=== PATIENT | male | born 1945 | race Caucasian/White ===

== ENCOUNTER 2016-11-15 11:02 | Emergency (ER) | payer OTHER, BC ==
[2016-11-15 11:26] VITALS: BP 152/86
[2016-11-15] MEDS ORDERED: Lidocaine 1% 20 ML MDV INFILT ONE (11:26)
[2016-11-15] MEDS ORDERED: Diphtheria/Tetanus Toxoids,Adult (Td) 0.5 ML SDV IM ONE (11:27)
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
[2016-11-15] MEDS ORDERED: Bacitracin Oint 1 GM U/D Packet ONE (12:39)
[2016-11-16] MEDS ORDERED: Bacitracin Oint 1 GM U/D Packet TOP ONE (08:49)
== END 2016-11-15 13:06 | disposition home or self-care (01) ==
LOC: JP.ED 11:02
DX: S81.811A Laceration without foreign body, right lower leg, initial encounter (principal); Z79.82 Long term (current) use of aspirin; Z79.899 Other long term (current) drug therapy; Z88.0 Allergy status to penicillin; W22.8XXA Striking against or struck by other objects, initial encounter; Y99.0 Civilian activity done for income or pay
CPT/HCPCS: 12007; 90471; 90714; 99283-25

== ENCOUNTER 2021-07-16 10:58 | Inpatient (IN) | payer BC, MEDICARE, OTHER ==
[2021-07-16] MEDS ORDERED: Albuterol/Ipratropium 3.0-0.5 MG/3 ML Neb Soln NEB ONE (11:04)
[2021-07-16] MEDS ORDERED: Sodium Chloride 0.9% 1,000 ML IV SCH (11:45)
[2021-07-16] MEDS ORDERED: cefTRIAXone 1 GM in Sodium Chloride 0.9% 50 ML IV ONE ×2 (11:51→13:00)
[2021-07-16] MEDS ORDERED: Levofloxacin/Dextrose 5%-Water 750 MG in Premix Bag 1 BAG IV ONE (11:51)
[2021-07-16 11:57] LABS: CORONAVIRUS COVID-19 NAA NEGATIVE (NEGATIVE)
[2021-07-16] MEDS ORDERED: Albuterol 0.083% 2.5 MG/3 ML Neb Soln NEB ONE (13:04)
[2021-07-16] MEDS ORDERED: methylPREDNISolone Sodium Succinate 125 MG/2 ML SDV IVPUSH ONE (13:04)
[2021-07-16] MEDS ORDERED: LORazepam 2 MG/ML SDV IVPUSH PRN ×2 (13:42→14:46)
[2021-07-16] MEDS ORDERED: Magnesium Hydroxide 400 MG/5 ML Susp 30 ML Cup PO PRN (14:46)
[2021-07-16] MEDS ORDERED: Ondansetron 4 MG Tab.DIS PO PRN (14:46)
[2021-07-16] MEDS ORDERED: Acetaminophen 325 MG Tab PO PRN (14:46)
[2021-07-16] MEDS ORDERED: Ondansetron 4 MG/2 ML SDV IV PRN (14:46)
[2021-07-16] MEDS ORDERED: Ibuprofen 600 MG Tab PO PRN (14:46)
[2021-07-16] MEDS: Linezolid 600 MG in Premix Bag 1 BAG IV SCH (14:55)
[2021-07-16] MEDS: Albuterol/Ipratropium 3.0-0.5 MG/3 ML Neb Soln NEB SCH ×2 (15:45→20:49)
[2021-07-16] MEDS ORDERED: Codeine/guaiFENesin 10-100 MG/5 ML Syrup 5 ML Cup PO PRN (16:02)
[2021-07-16] MEDS ORDERED: Benzonatate 100 MG Cap PO PRN (16:02)
[2021-07-16] MEDS: Morphine 2 MG/ML SYRINGE IVPUSH PRN ×3 (16:17→22:55)
[2021-07-16] MEDS: Sodium Chloride 0.9% 1,000 ML IV SCH (18:48)
[2021-07-16] MEDS: Lactobacillus Rhamnosus GG (Probiotic) Cap PO SCH (20:49)
[2021-07-16] MEDS: methylPREDNISolone Sodium Succinate 125 MG/2 ML SDV IVPUSH SCH (20:49)
[2021-07-17] MEDS: Morphine 2 MG/ML SYRINGE IVPUSH PRN ×3 (02:13→07:30)
[2021-07-17] MEDS: Linezolid 600 MG in Premix Bag 1 BAG IV SCH ×2 (03:39→15:22)
[2021-07-17] MEDS: methylPREDNISolone Sodium Succinate 125 MG/2 ML SDV IVPUSH SCH ×3 (04:25→20:16)
[2021-07-17] MEDS: Sodium Chloride 0.9% 1,000 ML IV SCH (06:02)
[2021-07-17] MEDS: Albuterol/Ipratropium 3.0-0.5 MG/3 ML Neb Soln NEB SCH ×4 (07:00→20:15)
[2021-07-17] MEDS ORDERED: Bupivacaine 0.5%/EPINEPHrine 1:200,000 50 ML MDV ONE (10:04)
[2021-07-17] MEDS ORDERED: Midazolam 1 MG/ML 2 ML SDV ONE (10:11)
[2021-07-17] MEDS ORDERED: Propofol 200 MG/20 ML SDV ONE (10:11)
[2021-07-17] MEDS ORDERED: fentaNYL 100 MCG/2 ML SDV ONE (10:11)
[2021-07-17] MEDS: Morphine PF 30 MG/30 ML PCA Vial IV PRN (11:56)
[2021-07-17] MEDS: Pantoprazole 40 MG Tab.CR PO SCH (11:59)
[2021-07-17] MEDS ORDERED: Naloxone 0.4 MG/ML SDV IV PRN (12:00)
[2021-07-17] MEDS: Lactobacillus Rhamnosus GG (Probiotic) Cap PO SCH ×2 (12:00→20:15)
[2021-07-17] MEDS: Aspirin 81 MG Tab.Chew PO SCH (12:00)
[2021-07-17] MEDS: Levofloxacin/Dextrose 5%-Water 750 MG in Premix Bag 1 BAG IV SCH (12:06)
[2021-07-17] MEDS: Acetaminophen 325 MG Tab PO SCH ×2 (12:14→18:16)
[2021-07-18] MEDS: Sodium Chloride 0.9% 1,000 ML IV SCH ×2 (00:23→12:22)
[2021-07-18] MEDS: Acetaminophen 325 MG Tab PO SCH ×5 (00:25→23:57)
[2021-07-18] MEDS: Linezolid 600 MG in Premix Bag 1 BAG IV SCH ×2 (02:25→15:22)
[2021-07-18] MEDS: methylPREDNISolone Sodium Succinate 125 MG/2 ML SDV IVPUSH SCH ×3 (05:14→20:35)
[2021-07-18] MEDS: Albuterol/Ipratropium 3.0-0.5 MG/3 ML Neb Soln NEB SCH ×4 (07:06→20:35)
[2021-07-18] MEDS: Pantoprazole 40 MG Tab.CR PO SCH (07:25)
[2021-07-18] MEDS: Lactobacillus Rhamnosus GG (Probiotic) Cap PO SCH ×2 (08:41→20:35)
[2021-07-18] MEDS: Aspirin 81 MG Tab.Chew PO SCH (08:41)
[2021-07-18] MEDS: Levofloxacin/Dextrose 5%-Water 750 MG in Premix Bag 1 BAG IV SCH (12:35)
[2021-07-18] MEDS ORDERED: Calcium Carbonate 500 MG Tab.Chew PO PRN (16:59)
[2021-07-19] MEDS: Morphine PF 30 MG/30 ML PCA Vial IV PRN (02:03)
[2021-07-19] MEDS: Linezolid 600 MG in Premix Bag 1 BAG IV SCH ×2 (03:00→15:12)
[2021-07-19] MEDS: methylPREDNISolone Sodium Succinate 125 MG/2 ML SDV IVPUSH SCH (04:56)
[2021-07-19] MEDS: Acetaminophen 325 MG Tab PO SCH ×4 (06:05→17:00)
[2021-07-19] MEDS: Albuterol/Ipratropium 3.0-0.5 MG/3 ML Neb Soln NEB SCH ×4 (07:26→21:11)
[2021-07-19] MEDS: Lactobacillus Rhamnosus GG (Probiotic) Cap PO SCH ×2 (08:12→21:00)
[2021-07-19] MEDS: Pantoprazole 40 MG Tab.CR PO SCH ×2 (08:12→16:59)
[2021-07-19] MEDS: Aspirin 81 MG Tab.Chew PO SCH (08:12)
[2021-07-19] MEDS ORDERED: Tamsulosin 0.4 MG Cap.ER PO ONE (09:00)
[2021-07-19] MEDS: Levofloxacin/Dextrose 5%-Water 750 MG in Premix Bag 1 BAG IV SCH (12:32)
[2021-07-19] MEDS: Albuterol 0.083% 2.5 MG/3 ML Neb Soln NEB PRN (15:40)
[2021-07-19] MEDS: methylPREDNISolone Sodium Succinate 40 MG/1 ML SDV IVPUSH SCH (16:52)
[2021-07-19] MEDS: Tamsulosin 0.4 MG Cap.ER PO SCH (21:00)
[2021-07-20] MEDS: Acetaminophen 325 MG Tab PO SCH ×4 (00:18→17:21)
[2021-07-20] MEDS: Linezolid 600 MG in Premix Bag 1 BAG IV SCH (02:57)
[2021-07-20] MEDS: methylPREDNISolone Sodium Succinate 40 MG/1 ML SDV IVPUSH SCH (04:01)
[2021-07-20] MEDS: Albuterol 0.083% 2.5 MG/3 ML Neb Soln NEB PRN (05:10)
[2021-07-20] MEDS: Albuterol/Ipratropium 3.0-0.5 MG/3 ML Neb Soln NEB SCH ×4 (07:14→22:19)
[2021-07-20] MEDS: Pantoprazole 40 MG Tab.CR PO SCH ×2 (07:54→16:28)
[2021-07-20] MEDS: Aspirin 81 MG Tab.Chew PO SCH (08:02)
[2021-07-20] MEDS: Lactobacillus Rhamnosus GG (Probiotic) Cap PO SCH ×2 (08:02→22:18)
[2021-07-20] MEDS: LORazepam 0.5 MG Tab PO PRN (10:12)
[2021-07-20] MEDS: Levofloxacin/Dextrose 5%-Water 750 MG in Premix Bag 1 BAG IV SCH (12:03)
[2021-07-20] MEDS: Tamsulosin 0.4 MG Cap.ER PO SCH (22:18)
[2021-07-21] MEDS: Morphine PF 30 MG/30 ML PCA Vial IV PRN (06:31)
[2021-07-21] MEDS: Acetaminophen 325 MG Tab PO SCH ×4 (06:49→17:15)
[2021-07-21] MEDS: Albuterol/Ipratropium 3.0-0.5 MG/3 ML Neb Soln NEB SCH ×4 (07:47→21:13)
[2021-07-21] MEDS: Potassium Phos in 0.9 % NaCl 15 MMOL in Premix Bag 1 BAG IV SCH ×6 (08:26→15:14)
[2021-07-21] MEDS: Pantoprazole 40 MG Tab.CR PO SCH ×2 (08:26→17:15)
[2021-07-21] MEDS: Aspirin 81 MG Tab.Chew PO SCH (08:27)
[2021-07-21] MEDS: Lactobacillus Rhamnosus GG (Probiotic) Cap PO SCH ×2 (08:28→21:13)
[2021-07-21] MEDS: Levofloxacin/Dextrose 5%-Water 750 MG in Premix Bag 1 BAG IV SCH (14:05)
[2021-07-21] MEDS: Albuterol 0.083% 2.5 MG/3 ML Neb Soln NEB PRN (19:34)
[2021-07-21] MEDS: Tamsulosin 0.4 MG Cap.ER PO SCH (21:13)
[2021-07-22] MEDS: Acetaminophen 325 MG Tab PO SCH ×5 (00:07→23:22)
[2021-07-22] MEDS: Albuterol/Ipratropium 3.0-0.5 MG/3 ML Neb Soln NEB SCH ×4 (07:03→20:56)
[2021-07-22] MEDS: Pantoprazole 40 MG Tab.CR PO SCH ×2 (07:25→15:43)
[2021-07-22] MEDS: Aspirin 81 MG Tab.Chew PO SCH (08:23)
[2021-07-22] MEDS: Lactobacillus Rhamnosus GG (Probiotic) Cap PO SCH ×2 (08:23→20:56)
[2021-07-22] MEDS: Budesonide 0.5 MG/2 ML Neb Susp NEB SCH ×2 (10:55→20:56)
[2021-07-22] MEDS: Levofloxacin/Dextrose 5%-Water 750 MG in Premix Bag 1 BAG IV SCH (12:07)
[2021-07-22] MEDS: Morphine PF 30 MG/30 ML PCA Vial IV PRN (15:15)
[2021-07-22] MEDS: Tamsulosin 0.4 MG Cap.ER PO SCH (20:56)
[2021-07-23] MEDS: Acetaminophen 325 MG Tab PO SCH ×4 (06:01→23:25)
[2021-07-23] MEDS: Budesonide 0.5 MG/2 ML Neb Susp NEB SCH ×2 (07:17→20:22)
[2021-07-23] MEDS: Albuterol/Ipratropium 3.0-0.5 MG/3 ML Neb Soln NEB SCH ×4 (07:17→20:22)
[2021-07-23] MEDS: Pantoprazole 40 MG Tab.CR PO SCH ×2 (08:05→15:41)
[2021-07-23] MEDS: Lactobacillus Rhamnosus GG (Probiotic) Cap PO SCH ×2 (08:05→20:22)
[2021-07-23] MEDS: Aspirin 81 MG Tab.Chew PO SCH (08:05)
[2021-07-23] MEDS ORDERED: Iopamidol 612 MG/ML 100 ML Bottle IV ONE (10:54)
[2021-07-23] MEDS ORDERED: Sodium Chloride 0.9% 50 ML IV SCH (11:00)
[2021-07-23] MEDS ORDERED: Furosemide 40 MG/4 ML VIAL IVPUSH ONE (11:15)
[2021-07-23] MEDS: Levofloxacin/Dextrose 5%-Water 750 MG in Premix Bag 1 BAG IV SCH (12:44)
[2021-07-23] MEDS: methylPREDNISolone Sodium Succinate 40 MG/1 ML SDV IVPUSH SCH ×2 (15:15→22:02)
[2021-07-23] MEDS: Benzocaine/Cetylpyridinium/Menthol Lozenge MUCMEM PRN (15:41)
[2021-07-23] MEDS: Tamsulosin 0.4 MG Cap.ER PO SCH (20:22)
[2021-07-24] MEDS: methylPREDNISolone Sodium Succinate 40 MG/1 ML SDV IVPUSH SCH ×3 (05:49→22:33)
[2021-07-24] MEDS: Acetaminophen 325 MG Tab PO SCH ×3 (05:50→17:04)
[2021-07-24] MEDS: Morphine PF 30 MG/30 ML PCA Vial IV PRN (06:05)
[2021-07-24] MEDS: Pantoprazole 40 MG Tab.CR PO SCH ×2 (07:35→15:50)
[2021-07-24] MEDS: Budesonide 0.5 MG/2 ML Neb Susp NEB SCH ×2 (07:38→20:28)
[2021-07-24] MEDS: Albuterol/Ipratropium 3.0-0.5 MG/3 ML Neb Soln NEB SCH ×4 (07:38→20:25)
[2021-07-24] MEDS: Lactobacillus Rhamnosus GG (Probiotic) Cap PO SCH ×2 (10:44→20:20)
[2021-07-24] MEDS: Aspirin 81 MG Tab.Chew PO SCH (10:45)
[2021-07-24] MEDS ORDERED: Linezolid 600 MG in Premix Bag 1 BAG IV SCH (12:00)
[2021-07-24] MEDS: Levofloxacin/Dextrose 5%-Water 750 MG in Premix Bag 1 BAG IV SCH (13:17)
[2021-07-24] MEDS: Meropenem 1 GM in Sodium Chloride 0.9% 100 ML IV SCH ×2 (15:45→22:33)
[2021-07-24] MEDS ORDERED: Vancomycin 1 GM SDV IV SCH (17:00)
[2021-07-24] MEDS: Tamsulosin 0.4 MG Cap.ER PO SCH (20:20)
[2021-07-25] MEDS: Acetaminophen 325 MG Tab PO SCH ×4 (00:11→17:05)
[2021-07-25] MEDS: methylPREDNISolone Sodium Succinate 40 MG/1 ML SDV IVPUSH SCH ×3 (05:17→22:34)
[2021-07-25] MEDS: Meropenem 1 GM in Sodium Chloride 0.9% 100 ML IV SCH ×3 (05:17→22:37)
[2021-07-25] MEDS ORDERED: Bupivacaine 0.5%/EPINEPHrine 1:200,000 50 ML MDV ONE (06:37)
[2021-07-25] MEDS ORDERED: Midazolam 1 MG/ML 2 ML SDV ONE (07:08)
[2021-07-25] MEDS ORDERED: fentaNYL 100 MCG/2 ML SDV ONE (07:08)
[2021-07-25] MEDS ORDERED: Propofol 200 MG/20 ML SDV ONE (07:08)
[2021-07-25] MEDS: Albuterol/Ipratropium 3.0-0.5 MG/3 ML Neb Soln NEB SCH ×4 (07:16→20:38)
[2021-07-25] MEDS: Budesonide 0.5 MG/2 ML Neb Susp NEB SCH ×2 (07:16→20:38)
[2021-07-25] MEDS: Linezolid 600 MG in Premix Bag 1 BAG IV SCH ×2 (09:30→20:29)
[2021-07-25] MEDS: Pantoprazole 40 MG Tab.CR PO SCH ×2 (10:30→15:42)
[2021-07-25] MEDS: Lactobacillus Rhamnosus GG (Probiotic) Cap PO SCH ×2 (10:30→20:28)
[2021-07-25] MEDS: Aspirin 81 MG Tab.Chew PO SCH (10:31)
[2021-07-25] MEDS: Levofloxacin/Dextrose 5%-Water 750 MG in Premix Bag 1 BAG IV SCH (12:24)
[2021-07-25] MEDS: Morphine PF 30 MG/30 ML PCA Vial IV PRN (20:13)
[2021-07-25] MEDS: Tamsulosin 0.4 MG Cap.ER PO SCH (20:28)
[2021-07-26] MEDS: Acetaminophen 325 MG Tab PO SCH ×4 (00:56→17:46)
[2021-07-26] MEDS ORDERED: Sodium Chloride 0.9% 75 ML IV STA (04:17)
[2021-07-26] MEDS ORDERED: Iopamidol 612 MG/ML 100 ML Bottle IV STA (04:17)
[2021-07-26] MEDS: Meropenem 1 GM in Sodium Chloride 0.9% 100 ML IV SCH ×3 (06:23→23:06)
[2021-07-26] MEDS: methylPREDNISolone Sodium Succinate 40 MG/1 ML SDV IVPUSH SCH ×3 (06:27→23:06)
[2021-07-26] MEDS: Albuterol/Ipratropium 3.0-0.5 MG/3 ML Neb Soln NEB SCH ×4 (07:48→20:58)
[2021-07-26] MEDS: Budesonide 0.5 MG/2 ML Neb Susp NEB SCH ×2 (07:48→20:58)
[2021-07-26] MEDS: Linezolid 600 MG in Premix Bag 1 BAG IV SCH ×2 (08:35→20:58)
[2021-07-26] MEDS: Aspirin 81 MG Tab.Chew PO SCH (08:36)
[2021-07-26] MEDS: Pantoprazole 40 MG Tab.CR PO SCH ×2 (08:36→16:12)
[2021-07-26] MEDS: Lactobacillus Rhamnosus GG (Probiotic) Cap PO SCH ×2 (08:36→20:58)
[2021-07-26] MEDS: Levofloxacin/Dextrose 5%-Water 750 MG in Premix Bag 1 BAG IV SCH (12:54)
[2021-07-26] MEDS: Tamsulosin 0.4 MG Cap.ER PO SCH (20:58)
[2021-07-27] MEDS: Acetaminophen 325 MG Tab PO SCH ×5 (00:57→17:53)
[2021-07-27] MEDS: Morphine PF 30 MG/30 ML PCA Vial IV PRN (03:03)
[2021-07-27] MEDS ORDERED: Sodium Chloride 0.65% Nasal Spray 45 ML Bottle NAS PRN (03:40)
[2021-07-27] MEDS: methylPREDNISolone Sodium Succinate 40 MG/1 ML SDV IVPUSH SCH (05:32)
[2021-07-27] MEDS: Meropenem 1 GM in Sodium Chloride 0.9% 100 ML IV SCH (05:32)
[2021-07-27] MEDS: Albuterol/Ipratropium 3.0-0.5 MG/3 ML Neb Soln NEB SCH ×4 (07:29→20:18)
[2021-07-27] MEDS: Budesonide 0.5 MG/2 ML Neb Susp NEB SCH ×2 (07:29→20:19)
[2021-07-27] MEDS: Pantoprazole 40 MG Tab.CR PO SCH ×2 (07:58→16:39)
[2021-07-27] MEDS ORDERED: Furosemide 20 MG/2 ML VIAL IVPUSH ONE (09:00)
[2021-07-27] MEDS: Linezolid 600 MG in Premix Bag 1 BAG IV SCH (09:19)
[2021-07-27] MEDS: Aspirin 81 MG Tab.Chew PO SCH (09:24)
[2021-07-27] MEDS: Lactobacillus Rhamnosus GG (Probiotic) Cap PO SCH ×2 (09:25→20:36)
[2021-07-27] MEDS: oxyCODONE 5 MG Tab PO PRN ×3 (11:01→21:47)
[2021-07-27] MEDS ORDERED: predniSONE 10 MG Tab PO ONE (12:00)
[2021-07-27] MEDS: Levofloxacin/Dextrose 5%-Water 750 MG in Premix Bag 1 BAG IV SCH (14:03)
[2021-07-27] MEDS: cefTRIAXone 1 GM in Sodium Chloride 0.9% 50 ML IV SCH (15:39)
[2021-07-27] MEDS: Tamsulosin 0.4 MG Cap.ER PO SCH (20:36)
[2021-07-28] MEDS: Acetaminophen 325 MG Tab PO SCH ×5 (00:38→23:43)
[2021-07-28] MEDS: oxyCODONE 5 MG Tab PO PRN ×4 (03:32→22:10)
[2021-07-28] MEDS: Albuterol 0.083% 2.5 MG/3 ML Neb Soln NEB PRN (03:51)
[2021-07-28] MEDS: Budesonide 0.5 MG/2 ML Neb Susp NEB SCH ×2 (07:11→20:36)
[2021-07-28] MEDS: Albuterol/Ipratropium 3.0-0.5 MG/3 ML Neb Soln NEB SCH ×4 (07:11→20:36)
[2021-07-28] MEDS: Pantoprazole 40 MG Tab.CR PO SCH ×2 (08:05→17:38)
[2021-07-28] MEDS: predniSONE 10 MG Tab PO SCH (08:15)
[2021-07-28] MEDS: Aspirin 81 MG Tab.Chew PO SCH (09:17)
[2021-07-28] MEDS: Lactobacillus Rhamnosus GG (Probiotic) Cap PO SCH ×2 (09:17→20:36)
[2021-07-28] MEDS ORDERED: Ketorolac 30 MG/ML SDV IVPUSH PRN ×2 (10:48→11:32)
[2021-07-28] MEDS: Levofloxacin/Dextrose 5%-Water 750 MG in Premix Bag 1 BAG IV SCH (14:10)
[2021-07-28] MEDS: cefTRIAXone 1 GM in Sodium Chloride 0.9% 50 ML IV SCH (15:57)
[2021-07-28] MEDS: Tamsulosin 0.4 MG Cap.ER PO SCH (20:36)
[2021-07-29] MEDS: Acetaminophen 325 MG Tab PO SCH ×3 (05:23→17:01)
[2021-07-29] MEDS: oxyCODONE 5 MG Tab PO PRN ×4 (05:24→21:37)
[2021-07-29] MEDS: predniSONE 10 MG Tab PO SCH (07:26)
[2021-07-29] MEDS: Pantoprazole 40 MG Tab.CR PO SCH ×2 (07:26→17:00)
[2021-07-29] MEDS: Albuterol/Ipratropium 3.0-0.5 MG/3 ML Neb Soln NEB SCH ×4 (07:33→21:32)
[2021-07-29] MEDS: Budesonide 0.5 MG/2 ML Neb Susp NEB SCH ×2 (07:33→21:37)
[2021-07-29] MEDS: Aspirin 81 MG Tab.Chew PO SCH (09:23)
[2021-07-29] MEDS: Lactobacillus Rhamnosus GG (Probiotic) Cap PO SCH ×2 (09:24→21:32)
[2021-07-29] MEDS: Levofloxacin/Dextrose 5%-Water 750 MG in Premix Bag 1 BAG IV SCH (15:09)
[2021-07-29] MEDS: cefTRIAXone 1 GM in Sodium Chloride 0.9% 50 ML IV SCH (16:57)
[2021-07-29] MEDS: Tamsulosin 0.4 MG Cap.ER PO SCH (21:32)
[2021-07-30] MEDS: Acetaminophen 325 MG Tab PO SCH ×5 (00:11→23:22)
[2021-07-30] MEDS: oxyCODONE 5 MG Tab PO PRN ×4 (02:09→20:37)
[2021-07-30] MEDS: Albuterol/Ipratropium 3.0-0.5 MG/3 ML Neb Soln NEB SCH ×4 (07:21→20:37)
[2021-07-30] MEDS: Budesonide 0.5 MG/2 ML Neb Susp NEB SCH ×2 (07:21→20:37)
[2021-07-30] MEDS: Pantoprazole 40 MG Tab.CR PO SCH ×2 (09:32→16:06)
[2021-07-30] MEDS: Aspirin 81 MG Tab.Chew PO SCH (09:33)
[2021-07-30] MEDS: Lactobacillus Rhamnosus GG (Probiotic) Cap PO SCH ×2 (09:33→20:38)
[2021-07-30] MEDS: predniSONE 10 MG Tab PO SCH (09:33)
[2021-07-30] MEDS: levoFLOXacin 500 MG, levoFLOXacin 250 MG PO SCH ×2 (11:16)
[2021-07-30] MEDS ORDERED: Levofloxacin 250 MG Tab PO SCH (13:00)
[2021-07-30] MEDS ORDERED: Levofloxacin 500 MG Tab PO SCH (13:00)
[2021-07-30] MEDS: cefTRIAXone 1 GM in Sodium Chloride 0.9% 50 ML IV SCH (13:54)
[2021-07-30] MEDS: Tamsulosin 0.4 MG Cap.ER PO SCH (20:38)
[2021-07-31] MEDS: oxyCODONE 5 MG Tab PO PRN ×3 (04:36→18:29)
[2021-07-31] MEDS: Acetaminophen 325 MG Tab PO SCH ×4 (05:53→23:43)
[2021-07-31] MEDS: Budesonide 0.5 MG/2 ML Neb Susp NEB SCH ×2 (07:04→20:58)
[2021-07-31] MEDS: Albuterol/Ipratropium 3.0-0.5 MG/3 ML Neb Soln NEB SCH ×4 (07:04→20:54)
[2021-07-31] MEDS: levoFLOXacin 500 MG, levoFLOXacin 250 MG PO SCH ×2 (07:40)
[2021-07-31] MEDS: Pantoprazole 40 MG Tab.CR PO SCH ×2 (07:40→16:59)
[2021-07-31] MEDS: Lactobacillus Rhamnosus GG (Probiotic) Cap PO SCH ×2 (08:43→20:55)
[2021-07-31] MEDS: predniSONE 10 MG Tab PO SCH (08:43)
[2021-07-31] MEDS: Aspirin 81 MG Tab.Chew PO SCH (08:43)
[2021-07-31] MEDS ORDERED: Furosemide 40 MG/4 ML VIAL IVPUSH ONE (13:30)
[2021-07-31] MEDS: cefTRIAXone 1 GM in Sodium Chloride 0.9% 50 ML IV SCH (14:29)
[2021-07-31] MEDS: Melatonin 3 MG Tab PO SCH (20:55)
[2021-07-31] MEDS: Tamsulosin 0.4 MG Cap.ER PO SCH (20:55)
[2021-07-31] MEDS: Benzocaine/Cetylpyridinium/Menthol Lozenge MUCMEM PRN (20:56)
[2021-08-01] MEDS: oxyCODONE 5 MG Tab PO PRN ×3 (04:51→20:43)
[2021-08-01] MEDS: Acetaminophen 325 MG Tab PO SCH ×3 (05:00→18:06)
[2021-08-01] MEDS: Albuterol/Ipratropium 3.0-0.5 MG/3 ML Neb Soln NEB SCH ×4 (07:07→20:38)
[2021-08-01] MEDS: Budesonide 0.5 MG/2 ML Neb Susp NEB SCH ×2 (07:07→20:38)
[2021-08-01] MEDS: Pantoprazole 40 MG Tab.CR PO SCH ×2 (07:27→18:07)
[2021-08-01] MEDS: levoFLOXacin 500 MG, levoFLOXacin 250 MG PO SCH ×2 (07:27)
[2021-08-01] MEDS: predniSONE 10 MG Tab PO SCH (07:27)
[2021-08-01] MEDS: Albumin Human 25 GM in Premix Bag 1 BAG IV SCH (07:27)
[2021-08-01] MEDS: Aspirin 81 MG Tab.Chew PO SCH (09:45)
[2021-08-01] MEDS: Lactobacillus Rhamnosus GG (Probiotic) Cap PO SCH ×2 (09:45→20:39)
[2021-08-01] MEDS: cefTRIAXone 1 GM in Sodium Chloride 0.9% 50 ML IV SCH (13:58)
[2021-08-01] MEDS ORDERED: Furosemide 40 MG/4 ML VIAL IVPUSH ONE (14:30)
[2021-08-01] MEDS: Melatonin 3 MG Tab PO SCH (20:39)
[2021-08-01] MEDS: Tamsulosin 0.4 MG Cap.ER PO SCH (20:39)
[2021-08-01] MEDS: Benzocaine/Cetylpyridinium/Menthol Lozenge MUCMEM PRN (20:43)
[2021-08-02] MEDS: Acetaminophen 325 MG Tab PO SCH ×5 (00:15→23:57)
[2021-08-02] MEDS: oxyCODONE 5 MG Tab PO PRN ×2 (05:47→21:18)
[2021-08-02] MEDS: Albuterol 0.083% 2.5 MG/3 ML Neb Soln NEB PRN (05:47)
[2021-08-02] MEDS: Budesonide 0.5 MG/2 ML Neb Susp NEB SCH ×2 (07:09→21:18)
[2021-08-02] MEDS: Albuterol/Ipratropium 3.0-0.5 MG/3 ML Neb Soln NEB SCH ×4 (07:09→21:18)
[2021-08-02] MEDS: Pantoprazole 40 MG Tab.CR PO SCH ×2 (07:57→15:57)
[2021-08-02] MEDS: Albumin Human 25 GM in Premix Bag 1 BAG IV SCH (07:57)
[2021-08-02] MEDS: predniSONE 10 MG Tab PO SCH (07:58)
[2021-08-02] MEDS: Aspirin 81 MG Tab.Chew PO SCH (08:08)
[2021-08-02] MEDS: Lactobacillus Rhamnosus GG (Probiotic) Cap PO SCH ×2 (08:09→21:17)
[2021-08-02] MEDS: levoFLOXacin 500 MG, levoFLOXacin 250 MG PO SCH ×2 (09:51)
[2021-08-02] MEDS ORDERED: Furosemide 20 MG/2 ML VIAL IVPUSH ONE (11:00)
[2021-08-02] MEDS: cefTRIAXone 1 GM in Sodium Chloride 0.9% 50 ML IV SCH (13:17)
[2021-08-02] MEDS: Benzocaine/Cetylpyridinium/Menthol Lozenge MUCMEM PRN (17:37)
[2021-08-02] MEDS: Melatonin 3 MG Tab PO SCH (21:18)
[2021-08-02] MEDS: Tamsulosin 0.4 MG Cap.ER PO SCH (21:18)
[2021-08-03] MEDS: Acetaminophen 325 MG Tab PO SCH ×4 (05:56→23:29)
[2021-08-03] MEDS: Budesonide 0.5 MG/2 ML Neb Susp NEB SCH ×2 (06:59→20:09)
[2021-08-03] MEDS: Albuterol/Ipratropium 3.0-0.5 MG/3 ML Neb Soln NEB SCH ×4 (06:59→20:09)
[2021-08-03] MEDS: levoFLOXacin 500 MG, levoFLOXacin 250 MG PO SCH ×2 (07:29)
[2021-08-03] MEDS: Pantoprazole 40 MG Tab.CR PO SCH ×2 (07:30→15:57)
[2021-08-03] MEDS: Albumin Human 25 GM in Premix Bag 1 BAG IV SCH (07:30)
[2021-08-03] MEDS ORDERED: Furosemide 20 MG/2 ML VIAL IVPUSH ONE (08:15)
[2021-08-03] MEDS: Aspirin 81 MG Tab.Chew PO SCH (08:30)
[2021-08-03] MEDS: Lactobacillus Rhamnosus GG (Probiotic) Cap PO SCH ×2 (08:31→20:09)
[2021-08-03] MEDS: cefTRIAXone 1 GM in Sodium Chloride 0.9% 50 ML IV SCH (14:05)
[2021-08-03] MEDS: Benzocaine/Cetylpyridinium/Menthol Lozenge MUCMEM PRN (17:47)
[2021-08-03] MEDS: Tamsulosin 0.4 MG Cap.ER PO SCH (20:09)
[2021-08-03] MEDS: Cefdinir 300 MG Cap PO SCH (20:09)
[2021-08-03] MEDS: Melatonin 3 MG Tab PO SCH (20:09)
[2021-08-04] MEDS: Acetaminophen 325 MG Tab PO SCH ×3 (06:55→17:04)
[2021-08-04] MEDS: Albuterol/Ipratropium 3.0-0.5 MG/3 ML Neb Soln NEB SCH ×4 (07:00→19:30)
[2021-08-04] MEDS: Budesonide 0.5 MG/2 ML Neb Susp NEB SCH ×2 (07:00→19:30)
[2021-08-04] MEDS: Pantoprazole 40 MG Tab.CR PO SCH ×2 (07:28→15:46)
[2021-08-04] MEDS: Albumin Human 25 GM in Premix Bag 1 BAG IV SCH (07:28)
[2021-08-04] MEDS: levoFLOXacin 500 MG, levoFLOXacin 250 MG PO SCH ×2 (07:28)
[2021-08-04] MEDS ORDERED: Levofloxacin 250 MG Tab PO SCH (08:00)
[2021-08-04] MEDS: Cefdinir 300 MG Cap PO SCH ×2 (09:19→20:04)
[2021-08-04] MEDS: Lactobacillus Rhamnosus GG (Probiotic) Cap PO SCH ×2 (09:19→20:04)
[2021-08-04] MEDS: Aspirin 81 MG Tab.Chew PO SCH (09:19)
[2021-08-04] MEDS ORDERED: Furosemide 20 MG/2 ML VIAL IVPUSH ONE (10:00)
[2021-08-04] MEDS: Benzocaine/Cetylpyridinium/Menthol Lozenge MUCMEM PRN (15:50)
[2021-08-04] MEDS: LORazepam 0.5 MG Tab PO PRN (19:41)
[2021-08-04] MEDS: Melatonin 3 MG Tab PO SCH (20:04)
[2021-08-04] MEDS: Tamsulosin 0.4 MG Cap.ER PO SCH (20:04)
[2021-08-05] MEDS: Acetaminophen 325 MG Tab PO SCH ×4 (00:41→17:23)
[2021-08-05] MEDS: Albuterol/Ipratropium 3.0-0.5 MG/3 ML Neb Soln NEB SCH ×4 (07:25→20:48)
[2021-08-05] MEDS: Budesonide 0.5 MG/2 ML Neb Susp NEB SCH ×2 (07:25→20:48)
[2021-08-05] MEDS ORDERED: Furosemide 20 MG/2 ML VIAL IVPUSH ONE (08:45)
[2021-08-05] MEDS ORDERED: Albuterol/Ipratropium 4 GM Inhalation Spray INH PRN (09:26)
[2021-08-05] MEDS: Aspirin 81 MG Tab.Chew PO SCH (09:29)
[2021-08-05] MEDS: levoFLOXacin 500 MG, levoFLOXacin 250 MG PO SCH ×2 (09:30)
[2021-08-05] MEDS: Lactobacillus Rhamnosus GG (Probiotic) Cap PO SCH ×2 (09:30→20:48)
[2021-08-05] MEDS: Cefdinir 300 MG Cap PO SCH ×2 (09:30→20:49)
[2021-08-05] MEDS: Pantoprazole 40 MG Tab.CR PO SCH ×2 (09:30→17:23)
[2021-08-05] MEDS: Benzocaine/Cetylpyridinium/Menthol Lozenge MUCMEM PRN (12:30)
[2021-08-05] MEDS: Tamsulosin 0.4 MG Cap.ER PO SCH (20:48)
[2021-08-05] MEDS: Melatonin 3 MG Tab PO SCH (20:48)
[2021-08-06] MEDS: Acetaminophen 325 MG Tab PO SCH ×5 (02:18→23:45)
[2021-08-06] MEDS: Albuterol/Ipratropium 3.0-0.5 MG/3 ML Neb Soln NEB SCH ×4 (07:06→20:03)
[2021-08-06] MEDS: Budesonide 0.5 MG/2 ML Neb Susp NEB SCH ×2 (07:06→20:03)
[2021-08-06] MEDS: levoFLOXacin 500 MG, levoFLOXacin 250 MG PO SCH ×2 (08:08)
[2021-08-06] MEDS: Pantoprazole 40 MG Tab.CR PO SCH ×2 (08:08→17:32)
[2021-08-06] MEDS ORDERED: Furosemide 40 MG/4 ML VIAL IVPUSH ONE (08:15)
[2021-08-06] MEDS: Aspirin 81 MG Tab.Chew PO SCH (08:32)
[2021-08-06] MEDS: Lactobacillus Rhamnosus GG (Probiotic) Cap PO SCH ×2 (08:32→20:04)
[2021-08-06] MEDS: Cefdinir 300 MG Cap PO SCH ×2 (08:32→20:04)
[2021-08-06] MEDS: Benzocaine/Cetylpyridinium/Menthol Lozenge MUCMEM PRN (10:42)
[2021-08-06] MEDS: Melatonin 3 MG Tab PO SCH (20:03)
[2021-08-06] MEDS: Tamsulosin 0.4 MG Cap.ER PO SCH (20:04)
[2021-08-07] MEDS: Acetaminophen 325 MG Tab PO SCH ×4 (05:23→23:15)
[2021-08-07] MEDS: Budesonide 0.5 MG/2 ML Neb Susp NEB SCH ×2 (06:59→20:05)
[2021-08-07] MEDS: Albuterol/Ipratropium 3.0-0.5 MG/3 ML Neb Soln NEB SCH ×4 (06:59→20:03)
[2021-08-07] MEDS: levoFLOXacin 500 MG, levoFLOXacin 250 MG PO SCH ×2 (07:50)
[2021-08-07] MEDS: Pantoprazole 40 MG Tab.CR PO SCH ×2 (07:50→17:17)
[2021-08-07] MEDS: Aspirin 81 MG Tab.Chew PO SCH (08:43)
[2021-08-07] MEDS: Cefdinir 300 MG Cap PO SCH ×2 (08:43→20:04)
[2021-08-07] MEDS: Lactobacillus Rhamnosus GG (Probiotic) Cap PO SCH ×2 (08:43→20:03)
[2021-08-07] MEDS: Furosemide 20 MG Tab PO SCH (08:43)
[2021-08-07] MEDS: Benzocaine/Cetylpyridinium/Menthol Lozenge MUCMEM PRN (14:29)
[2021-08-07] MEDS: Tamsulosin 0.4 MG Cap.ER PO SCH (20:03)
[2021-08-07] MEDS: Melatonin 3 MG Tab PO SCH (20:04)
[2021-08-08] MEDS: Acetaminophen 325 MG Tab PO SCH ×3 (04:45→11:31)
[2021-08-08] MEDS: Albuterol/Ipratropium 3.0-0.5 MG/3 ML Neb Soln NEB SCH ×2 (06:58→11:18)
[2021-08-08] MEDS: Budesonide 0.5 MG/2 ML Neb Susp NEB SCH (06:58)
[2021-08-08] MEDS: Pantoprazole 40 MG Tab.CR PO SCH (07:05)
[2021-08-08] MEDS: levoFLOXacin 500 MG, levoFLOXacin 250 MG PO SCH ×2 (07:06)
[2021-08-08] MEDS: Cefdinir 300 MG Cap PO SCH (08:28)
[2021-08-08] MEDS: Aspirin 81 MG Tab.Chew PO SCH (08:28)
[2021-08-08] MEDS: Lactobacillus Rhamnosus GG (Probiotic) Cap PO SCH (08:28)
[2021-08-08] MEDS: Furosemide 20 MG Tab PO SCH (08:28)
[2021-08-08 11:35] VITALS: BP 134/55; PULSE 112
== END 2021-08-08 13:35 | disposition home health service (06) | DRG 853 ==
LOC: JP.ED 10:58 → JP.MS 13:33 → JP.ICU 14:33 → JP.MS 07-30 16:29
PROVIDERS: ADMIT Internal Medicine; ATTEND Internal Medicine
PROC: 0W9930Z Drainage of Right Pleural Cavity with Drainage Device, Percutaneous Approach (ICD-10-PCS; principal; 2021-07-17)
PROC: 0BNK0ZZ Release Right Lung, Open Approach (ICD-10-PCS; 2021-07-25)
PROC: 0B9N00Z Drainage of Right Pleura with Drainage Device, Open Approach (ICD-10-PCS; 2021-07-25)
PROC: 02HV33Z Insertion of Infusion Device into Superior Vena Cava, Percutaneous Approach (ICD-10-PCS; 2021-07-27)
DX: A40.3 Sepsis due to Streptococcus pneumoniae (principal); J18.9 Pneumonia, unspecified organism; J96.01 Acute respiratory failure with hypoxia; J94.2 Hemothorax; J86.9 Pyothorax without fistula; J13 Pneumonia due to Streptococcus pneumoniae; J85.1 Abscess of lung with pneumonia; J94.8 Other specified pleural conditions; I31.3 Pericardial effusion (noninflammatory); E46 Unspecified protein-calorie malnutrition; Z20.822 Contact with and (suspected) exposure to COVID-19; J43.9 Emphysema, unspecified; Z46.82 Encounter for fitting and adjustment of non-vascular catheter; Z79.82 Long term (current) use of aspirin; Z79.899 Other long term (current) drug therapy; Z88.0 Allergy status to penicillin; I10 Essential (primary) hypertension; Z86.19 Personal history of other infectious and parasitic diseases; Z96.659 Presence of unspecified artificial knee joint
CPT/HCPCS: 0241U; 36415; 51798; 71045; 71045-26; 71046; 71046-26; 71250; 71260; 76998; 80048; 80053; 80202; 82803; 83735; 83880; 84100; 84484; 85025; 85027; 85610; 85730; 86140; 87015; 87040; 87070; 87075; 87077; 87102; 87116; 87184; 87205; 87206; 87220; 93005; 93010; 93306; 93308; 94640; 94660; 97110-GP; 97162-GP; 97530-GP; 97535-GP; 99222; 99232; 99239; 99285; 99285-25; A9270-GY; C1751; J0696; J0713; J1885; J1940; J1956; J2020; J2185; J2250; J2270; J2274; J2704; J2920; J2930; J3010; J3370; J3490; J7030; J7050; J7512; J7620; P9047; Q9967

== ENCOUNTER 2022-10-25 06:51 | Day surgery (SDC) | payer MEDICARE ==
[2022-10-25] MEDS ORDERED: Sodium Chloride 0.9% 10 ML Syringe FLUSH ONE (08:00)
[2022-10-25 08:27] VITALS: BP 157/78; PULSE 95
== END 2022-10-25 09:00 | disposition home or self-care (01) ==
LOC: JP.SDS 06:51
PROVIDERS: ATTEND Ophthalmology
DX: H25.811 Combined forms of age-related cataract, right eye (principal); J44.9 Chronic obstructive pulmonary disease, unspecified; I10 Essential (primary) hypertension; Z88.0 Allergy status to penicillin